=== PATIENT | male | born 1995 | race African-American/Black ===

== ENCOUNTER 2017-11-30 10:47 | Emergency (ER) | payer SELFPAY ==
[~2017-11-30] VITALS: Ht 193 cm; Wt 110.0 kg
[~2017-11-30 10:47] MED LIST: DICY1TAB26 PO; SULF-154 PO; Z.0.NO CURRENT MEDS
[2017-11-30 10:50] VITALS: BP 144/69; PULSE 77; RESP 17; TEMP 97.8; O2SAT 100
--- NOTE | 2017-11-30 11:13 | PD ---
HPI Chief Complaint: Medical Clearance Time Seen by Provider: 11:01 Travel History International Travel<30 days: No Contact w/Intl Traveler<30days: No Traveled to known affect area: No History of Present Illness HPI 22-year-old male presents emergency department with his girlfriend requesting treatment after his go from was diagnosed with trichomoniasis yesterday. States that they are in a monogamous relationship. Girlfriend states that she is . Says that she was treated for trichomoniasis yesterday and was discharged home. Currently, patient denies fever, chills, penile discharge or lesions. Denies chronic medical issues or medication use. PFSH Past Medical History Diminished Hearing: No Immunizations Current: Yes Social History Alcohol Use: No Tobacco Use: Yes (last used 2 months ago) Substance Use: No Allergies-Medications (Allergen,Severity, Reaction): Coded Allergies: No Known Allergies (Verified , 01/30/09) Reported Meds & Prescriptions Reported Meds & Active Scripts Active Bentyl (Dicyclomine HCl) 20 Mg Tab 20 Mg PO [id number] Septra Ds (Trimethoprim/Sulfamethoxazole) Tab 1 Tab PO BID Reported No Current Meds (Miscellaneous Medication) Misc Review of Systems Except as stated in HPI: all other systems reviewed are Neg Physical Exam Narrative GENERAL: Well-nourished, well-developed patient. SKIN: Focused skin assessment warm/dry. HEAD: Normocephalic. EYES: No scleral icterus. No injection or drainage. NECK: Supple, trachea midline. No JVD or lymphadenopathy. CARDIOVASCULAR: Regular rate and rhythm without murmurs, gallops, or rubs. RESPIRATORY: Breath sounds equal bilaterally. No accessory muscle use. GASTROINTESTINAL: Abdomen soft, non-tender, nondistended. No CVA tenderness Genitourinary exam deferred MUSCULOSKELETAL: No cyanosis, or edema. BACK: Nontender without obvious deformity. No CVA tenderness. Data Data Last Documented VS Vital Signs Date Time Temp Pulse Resp B/P (MAP) Pulse Ox O2 Delivery O2 Flow Rate FiO2 11/30/17 10:54 18 11/30/17 10:50 97.8 17 144/69 (94) 100 Orders Orders Metronidazole (Flagyl) (11/30/17 11:15) MDM Medical Decision Making Medical Screen Exam Complete: Yes Emergency Medical Condition: Yes Differential Diagnosis Antibiotic prophylaxis against trichomoniasis, STI, urethritis Narrative Course 22-year-old male presents emergency department requesting treatment after his girlfriend was diagnosed with trichomoniasis yesterday. Patient denies any symptoms at this point. Advised that we may complete a course of treatment while in the emergency department today versus outpatient antibiotics for several days. Patient agreed to antibiotics while in the emergency department today. Advised that she may feel nauseous but refused nausea medication. Patient will be given metronidazole 2 g. Avoid sexual intercourse for 7-10 days. Advised to follow-up with his primary care physician or health department for further concerns. Return to the emergency department worsening or persistent symptoms. Diagnosis Primary Impression: Prophylactic antibiotic Referrals: [facility] Additional Instructions: Avoid intercourse for 7-10 days. Follow-up with your primary care physician. If you develop penile discharge or lesions return to primary care physician or the health department. Avoid alcohol use for approximately 3 days. Disposition: 01 DISCHARGE HOME Condition: Stable Consuelo Jesus Nov 30, 2017 11:13
[2017-11-30] MEDS ORDERED: metroNIDAZOLE 500 MG TAB PO ONE (11:15)
== END 2017-11-30 17:40 | disposition home or self-care (01) ==
LOC: NEPC 10:47
DX: Z20.2 Contact with and (suspected) exposure to infections with a predominantly sexual mode of transmission (principal)
CPT/HCPCS: 99283